=== PATIENT | female | born 1960 | race Two or more races ===

== ENCOUNTER 2024-05-21 09:40 | Outpatient (RCR) | payer OTHER, SELFPAY ==
--- NOTE | 2024-05-21 11:50 | CTCCONSULT_ITS ---
Gerardo Duenas Pending Sale To [facility] [address] [place], [place] [address] Consultation Note Date: 05/21/2024 MR#: [id number] Name: SAVANA MENDIOLA : 1960 Dx: C54.1 Malignant neoplasm of endometrium Referring physician. Isacc Reynolds DO Reason for consultation. Patient with stage Ib [id number]+ status post ROBERT/BSO referred for postop adju vant therapy. History of Present Illness: Patient is a 63-year-old lady experienced intermittent postmenop ausal bleeding and cramping and CT scan 03/18/2024 revealed left adnexal mass with no abdominal pelvic lymphadenopathy or evidence of met disease. Uterus was grossly unremarkable. Patient underwent ROBERT /BSO and peritoneal washings and bilateral pelvic sentinel lymph node biopsies performed by Dr. Vandana Reynolds DO [facility] in [place], 04/14/2024. Final pathology t umor size 4.5 cm greatest dimension FIGO grade 1 with 75% myometrial invasion. Peritoneal ascitic fl uid negative for malignant cells lymphatic and/or vascular invasion was equivocal; margins negative for invasive carcinoma in 1 isolated tumor cell 0.2 mm. Left tube and ovary revealed ovarian fibroma and benign cysts. Case was discussed at tumor board and radiation therapy was recommended. Preop C A125 reportedly was 107 but no distant mets noted. Past Medical History: High blood pressure asthma Meds. 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 Denies smoking drinking Family history. Father had lung cancer Sister with cervical uterine cancer mother had breast cancer. Review of Systems: Has experienced anxiety memory loss muscle pain increased thirst sleep problem Physical Exam: General: Adequate nourished appearing lady no acute distress HEENT: Atraumatic normocephalic extraocular is intact no oral lesion no cervical or supraclavicular a denopathy CV: Chest clear to auscultation heart regular rate and rhythm ABD: Soft no organomegaly or tenderness EXT: No signs of clubbing or edema Assessment:1. Stage Ib grade 1 [id number]+ uterine CA status post ROBERT/BSO 04/14/2024. 2. Deep 75% myometrial invasion equivocal lymphovascular invasion. 3. The above along with her being over 60 years old puts her at some risk of recurrence. Tumor boar d discussed in [place] reportedly suggested pelvis radiation which I believe is necessary. Approximat alverto 4500 to 5000 cGy using VMAT/IMRT should be reasonably tolerated with lowering the chance for recu rrence. Side effects discussed. Thank you very much for allowing me to evaluate and manage this pa tient. Cc: Isacc Reynolds DO [facility] [address] [place] [address] Dr. Elizabeth, [address], [place] [address] Electronically signed by: Blade Cosby MD, LILIAMR 05/21/2024 11:48 AM
--- NOTE | 2024-05-21 12:28 | CTCTXPLN_ITS ---
[facility] [place] [address] [place], [place] [address] Physician Clinical Treatment Planning Note Date of Service: 05/21/2024 Name: SAVANA NICHOLSMarisol MontezB.: 1960 The patient has agreed to proceed with Radiation therapy. Tests and supporting medical records were interpreted to assist in defining the tumor location and extent of disease. Further imaging will be necessary to contour and delineate the volume to which the XRT will be provided. A. Treatment Intent: Curative B. Modality: 10 MV C. Requested Technique: VMAT D. Treatment Site: Pelvis E. Critical structures to be contoured on plan: F. In order to accomplish this plan, I am ordering/Prescribing the followin. Simulations (s) will be performed to accomplish a reproducible treatment position, to determine op timal treatment portals/beam arrangements, to design beam modifying devices and verify treatment port als on patient prior to the commencement of Radiation Therapy. Vac-Yair 2. Devices; for immobilization and beam shaping: Pelvis 3. CT Guidance for placement of XRT lopez Scan area: 4. Portal images Frequency: 5. Invivo transit dose measurement once per week on all VMAT patients. 6. Special Physics Consult Requested for: 7. Other requests: G. Dose Objectives: Curative Electronically signed by: Blade Cosby M.D. 05/21/2024 12:25 PM
--- NOTE | 2024-05-21 12:29 | CTCTXPLNST_ITS ---
Radiation Oncology Treatment Planning Sheet Name: SAVANA MENDIOLA MR#: [id number] : 1960 Dx: C54.1 Malignant neoplasm of endometrium Date of Service: 05/21/2024 Account #: ?? Pt Treatment Intent: curative palliative other: Stage: Procedure CPT # Ordered Spec. Procedure 70466 Hunter Complex (set-up) 79414 pelvis 1 Hunter Simple 14854 IMRT Plan 30148 1 MLC Devices VMAT 19120 3 Hunter 3 D 43626 TRTMT dev Complex 69799 vaklok 1 TRTMT dev simple 99870 Basic Micheal 89170 9 Special Dosimetry 80732 Spec Physics 07993 Port Films 34311 SRS Cranial/1FX 28933 SBR 5 FX or Less /ex: 5 = 5 fx 97411 IMRT Simple 03137 5000 25 IMRT Complex 78756 IGRT 00367 22 Rad del com 6-10 37690 Rad del com 11 54039 Cont Med Physics 32217 5 Treatment Planning 18321 1 Rad del com 20 mev 53552 Rad del inter 6 20018 Rad del inter 05-20 16769 Rad del simple 6-10 17151 Rad del simple 05-20 51505 Special Port Plan 85985 TRTMT dev inter 16511 Isodose Complex 80595 Isodose simple 95011 Resp Motion Mgmt Simulation 27635 Placement of Fiducial Markers 91765 Electronically Signed By: Blade Cosby MD, DABR 05/21/2024 12:26 PM
== END 2024-05-31 23:59 | disposition home or self-care (01) ==
LOC: SCTC 09:40
PROVIDERS: PCP Physician Assistant; Referring Provider Radiology Therapeutic Radiology; Visit Provider Radiology Therapeutic Radiology
DX: C54.1 Malignant neoplasm of endometrium (principal); Z90.710 Acquired absence of both cervix and uterus; Z90.722 Acquired absence of ovaries, bilateral
CPT/HCPCS: 99213; G0463

== ENCOUNTER 2024-07-01 09:24 | Outpatient (RCR) | payer OTHER, MEDICAID, SELFPAY ==
--- NOTE | 2024-06-04 16:26 | CTCSNOTE_ITS ---
[facility] [address] [place], [place] [address] CT Simulation Note Date: 06/04/2024 MR# [id number] Name: SAVANA MENDIOLA : 1960 (A) DIAGNOSIS: C54.1 Malignant neoplasm of endometrium (B) Patient was placed in supine position and used vaklok for immobilization purposes. (C) CT slices included pelvis (D) VMAT Will be needed for maximum sparing of adjacent normal critical structures. (E) Patient tolerated the simulation well and left the room in good condition. Electronically signed by: Blade Cosby MD, LILIAMR 06/04/2024 4:24 PM
== END 2024-07-01 23:59 | disposition home or self-care (01) ==
LOC: SCTC 09:24
PROVIDERS: PCP Physician Assistant; Referring Provider Physician Assistant; Visit Provider Radiology Therapeutic Radiology
DX: Z51.0 Encounter for antineoplastic radiation therapy (principal); C54.1 Malignant neoplasm of endometrium; Z90.710 Acquired absence of both cervix and uterus; Z90.722 Acquired absence of ovaries, bilateral
CPT/HCPCS: 77014; 77290; 77300; 77301; 77334; 77336; 77338; 77385; 99424; 99425

== ENCOUNTER 2024-07-22 09:27 | Outpatient (RCR) | payer MEDICAID, SELFPAY | END 2024-08-01 23:59 | disposition home or self-care (01) | LOC: SCTC 09:27 | PROVIDERS: PCP Physician Assistant; Referring Provider Physician Assistant; Visit Provider Radiology Therapeutic Radiology | DX: Z51.0 Encounter for antineoplastic radiation therapy (principal); C54.1 Malignant neoplasm of endometrium | CPT/HCPCS: 77336; 77385; 99211; G0463 ==

== ENCOUNTER 2024-09-16 10:53 | Outpatient (RCR) | payer MEDICAID, SELFPAY ==
--- NOTE | 2024-09-16 12:19 | CTCFLWUP_ITS ---
[facility] [address] [place], [place] [address] FOLLOW-UP NOTE Date: 09/16/2024 MR#: [id number] Name: SAVANA MENDIOLA : 1960 Dx: C54.1 Malignant neoplasm of endometrium Identification. Patient with endometrial CA stage Ib ROBERT/BSO performed 04/14/2024. There was deep myometrial invasion and equivocal lymphovascular invasion. This put her at some risk of recurrence along with her age of over 61 and pelvis radiation 5000 cGy was completed 07/22/2024. Patient is having some side effects including fatigue trouble sleeping and some discomfort in the lower abdominal region. Patient is unable to return to [place] due to insurance issues for the time being. I recommended that patient be off work for the next 4 months, until January 20 2025 to recover from her surgery and postop radiation treatments. I will see her at the time about possibly returning to work along with various test including CT scan and blood tests which we ordered at the time. Electronically signed by: Blade Cosby M.D. 09/16/2024 12:15 PM
== END 2024-09-29 23:59 | disposition home or self-care (01) ==
LOC: SCTC 10:53
PROVIDERS: PCP Physician Assistant; Referring Provider Physician Assistant; Visit Provider Radiology Therapeutic Radiology
DX: C54.1 Malignant neoplasm of endometrium (principal)
CPT/HCPCS: 99212; G0463

== ENCOUNTER 2025-01-28 09:04 | Outpatient (RCR) | payer MEDICAID, SELFPAY ==
--- NOTE | 2025-01-28 11:46 | CTCFLWUP_ITS ---
[facility] [address] [place], [place] [address] FOLLOW-UP NOTE Date: 01/28/2025 MR#: [id number] Name: SAVANA MENDIOLA : 1960 Dx: C54.1 Malignant neoplasm of endometrium Identification. Patient underwent ROBERT/BSO 04/14/2024 stage Ib grade 1 [id number]+ uterine CA with deep 75% myometrial invasion with equivocal lymphovascular invasion. Postop XRT as recommended completed 07/22/2024 5000 cGy. Patient is doing well has no pelvic complaints. Patient goes to [place] regularly to see Dr. Reynolds and prefers to get pelvics done there. I will order CT scan of abdomen pelvis chest and get CA125. If all is well we will see her again in 6 months time. Electronically signed by: Blade Cosby M.D. 01/28/2025 11:44 AM
== END 2025-01-29 23:59 | disposition home or self-care (01) ==
LOC: SCTC 09:04
PROVIDERS: PCP Physician Assistant; Referring Provider Physician Assistant; Visit Provider Radiology Therapeutic Radiology
DX: C54.1 Malignant neoplasm of endometrium (principal); Z90.710 Acquired absence of both cervix and uterus; Z90.722 Acquired absence of ovaries, bilateral; Z92.3 Personal history of irradiation
CPT/HCPCS: 99213; G0463

== ENCOUNTER 2025-03-10 13:16 | Outpatient (CLI) | payer MEDICAID, SELFPAY ==
[2025-03-10 08:56] LABS: Basophils # (Auto) 0.0 Thou/mm3 (0.0-0.2); Basophils % (Auto) 0 % (0-2.5); Eosinophils # (Auto) 0.5 Thou/mm3 (0.0-0.5); Eosinophils % (Auto) 6 % (0-10); Hematocrit 38.8 % (36.0-46.0); Hemoglobin 12.4 g/dL (12.0-16.0); Immature Granulocytes Auto 0.04 Thou/mm3 (0.00-0.00); Lymphocytes # (Auto) 1.7 Thou/mm3 (1.0-4.8); Lymphocytes % (Auto) 20 % (10-50); Mean Corpuscular HGB Conc 32.0 g/dl (31.0-37.0); Mean Corpuscular Hemoglobin 28.0 pg (25.0-35.0); Mean Corpuscular Volume 88 fL (80-100); Monocytes # (Auto) 0.6 Thou/mm3 (0.0-0.8); Monocytes % (Auto) 7 % (0-12); Neutrophils # (Auto) 5.6 Thou/mm3 (1.8-7.7); Neutrophils % (Auto) 66 % (37-80); Nucleated Red Blood Cell # 0.00 Thou/mm3 (0.00-0.00); Nucleated Red Blood Cell % 0 /100 WBC (0); Platelet Count 308 Thou/mm3 (140-440); RDW Standard Deviation 45.5 fL (36.4-46.3); Red Blood Count 4.43 Miln/mm3 (4.00-5.20); White Blood Count 8.4 Thou/mm3 (3.6-11.0)
[2025-03-10 09:01] LABS: Alanine Aminotransferase 19 U/L (10-49); Albumin, Serum 4.0 gm/dL (3.4-4.8); Albumin/Globulin Ratio 1.5 (1.2-2.2); Alkaline Phosphatase 81 U/L (46-116); Anion Gap 11 (7-16); Aspartate Amino Transferase 23 U/L (0-34); BUN/Creatinine Ratio 22 Ratio (12-20); Bilirubin,Total 0.2 mg/dL (0.3-1.2); Blood Urea Nitrogen 24 mg/dL (9-23); Calcium 9.1 mg/dL (8.3-10.6); Calcium (Corrected) 9.1 mg/dL (8.5-10.1); Carbon Dioxide 29.9 mMol/L (20.0-31.0); Chloride 105 mMol/L (98-107); Creatinine (Component) 1.1 mg/dL (0.6-1.3); Globulin 2.7 gm/dL (2.3-3.5); Glucose 91 mg/dL (74-106); Osmolality,Calculated 294 (275-295); Potassium 4.0 mMol/L (3.4-5.1); Sodium 146 mMol/L (136-145); Total Protein 6.7 gm/dL (5.7-8.2); eGFR 56 See Note
[2025-03-10 09:13] LABS: CA 125 4.0 U/mL (<30.2)
--- NOTE | 2025-03-10 14:46 | XR_ITS ---
Examination: CT chest with intravenous contrast CT abdomen with intravenous contrast CT pelvis with intravenous contrast 2-D coronal and sagittal reconstructions Time of exam: March 10, 2025, 1523 hours, comparison CT angiogram February 25, 2024 INDICATIONS: Diagnosis malignant neoplasm of the endometrium diagnosed 2022, hysterectomy 2023, restaging CTDI: vol (mGy) : 14 DLP: (mGycm): 1034 Technique: Multiple axial images of the chest, abdomen and pelvis with intravenous contrast, 3.0 mm slice thickness. Images obtained post intravenous injection Isovue 370 60 cc. 2-D sagittal and coronal reconstructions. Low dose protocols were performed. One or more of the following dose reduction techniques were used; automated exposure control, adjustment of the mA and/or KV according to patient size, use of iterative reconstruction technique. Findings: No thoracic aortic aneurysm dilatation No pulmonary artery emboli or filling defects on this non-CTA study No paratracheal tracheobronchial or pulmonary adenopathy 5 mm pulmonary nodule medial right lower lobe image 134 No pneumonia pulmonary edema or pleural disease Diffuse fatty infiltration throughout the liver no focal liver lesions Hepatomegaly 19 cm No gallstones Splenic or pancreatic mass Normal adrenal glands. 1 mm nonobstructing renal calculus Significant bilateral renal scar formation, no solid mass lesion 1 mm nonobstructing right renal calculus Aorta is normal in size No abnormal pelvic lymphadenopathy Normal appendix Colonic diverticulosis Absent uterus Bladder intact Significant osteopenia Grade 1 anterolisthesis L4 on L5 IMPRESSION: 5 mm pulmonary nodule medial right lower lobe, with this study as baseline recommend 6 month follow-up CT chest without contrast No focal liver lesions, moderate hepatomegaly. Significant bilateral renal scar formation No abdominal or pelvic lymphadenopathy
[2025-03-10 15:05] VITALS: BP 139/98; PULSE 79; RESP 19; TEMP 36.4; O2SAT 99
[2025-03-10] MEDS: HYDROCORTISONE SOD SUCC INJ 100 MG 2 ML VIAL IV (15:14)
[2025-03-10 15:27] VITALS: BP 147/93; PULSE 80; RESP 18; O2SAT 99
--- NOTE | 2025-03-10 15:28 | PC.NURSE ---
Post CT with contrast with premedication for allergy to iodine. Patient states she feels fine and does not report any itchiness, abnormal throat sensation or swelling. No hives noted on patient.
[2025-03-10 15:45] VITALS: BP 132/75; PULSE 76; RESP 24; O2SAT 97
--- NOTE | 2025-03-10 15:57 | PC.NURSE ---
see MAR for medications given, patient appears to be fine without any signs and symptoms of an allergic reaction from the contrast, vitals signs are stable and patient does not complain of any airway restrictions or body hives, patient is stable and ready to go home.
[2025-03-10 16:00] VITALS: BP 126/89; PULSE 73; RESP 17; TEMP 36.4; O2SAT 99
== END 2025-03-10 16:00 | disposition home or self-care (01) ==
LOC: CCTX 13:23 → SCAT 14:22
PROVIDERS: PCP Physician Assistant; Referring Provider Radiology Therapeutic Radiology; Visit Provider Radiology Therapeutic Radiology
DX: R91.1 Solitary pulmonary nodule (principal); N28.89 Other specified disorders of kidney and ureter; C54.1 Malignant neoplasm of endometrium
CPT/HCPCS: 36415; 71260; 74177; 80053; 85025; 86304; A4649; J1720; Q9967

== ENCOUNTER 2025-03-30 14:45 | Outpatient (AMB) | payer MEDICAID, SELFPAY ==
--- NOTE | 2025-03-30 14:51 | GSCOFFNT_ITS ---
Vital Signs - [facility] 03/30/25 15:04 Height 1.7 m Height Method Measured Weight 114.986 kg Weight Measurement Method Standing Scale BMI 39.6 BP 135/85 H Blood Pressure Source Automatic Cuff Blood Pressure Location Left Upper Arm Position Sitting Respiration 18 Pulse 83 Pulse Source Monitor Temp 97.5 F Temp Source Temporal Artery Scan Pulse Oximetry (%) 96 Oxygen Delivery Method Room Air Med/Allergies Allergies & Medications Allergies iodine Allergy (Severe, Verified 03/30/25 15:05) Hives Medication Reconciliation Unobtainable 03/30/25 [History Confirmed 03/30/25] MA Intake Visit Data Collection New Patient or Established: Established Patient (seen at [facility] within 3 years) Seen by Clinical Staff ONLY (RN/MA): No Reason for Visit:: REFERRAL CONSTIPATION Pain Present Currently: No Pain Scale Used: Qureshi-Greene/Numerical Recorder Of Deeds Required: Yes PCP or OBGYN visit in last 3 months: Yes Hx Now: No Do You Feel Safe at Home: Yes Authorities Contacted: N/A Smoking Status Smoking Status: Never smoker Immunization / Flu Flu Vaccine in the Last 12 Months: Yes Flu Vaccine Exclusion Criteria: Already Received Past Medical History Surgical History SURGICAL: Positive Hysterectomy (TOTAL 04/2025) Social History SMOKING STATUS: Smoking status: Never smoker HPI HPI Narrative HISTORY OF PRESENT ILLNESS I, Kim Lozoya, have obtained verbal consent from the patient, to be recorded during this encounter which may include, but not limited to, medical history, examination, treatment plans, and relevant health information.? Patient was informed that recording will be read and reviewed by myself before inclusion in the medical chart. The patient is a 64F referred for constipation. She has been experiencing constipation for approximately 3 years, which worsened following a total hysterectomy in 04/2024. Her bowel movements are irregular, sometimes occurring daily, while at other times she may not have a bowel movement for two days. She often needs to take something to help with her bowel movements, primarily psyllium and occasionally another medication, the name of which she cannot recall. She reports no urge to defecate and describes her stools as thin strips, a pattern that has persisted for the past three years. She has not experienced any instances of loose stools or blood in her stool. She also reports feeling bloated. She experiences pain under her left rib when constipated, which subsides after a bowel movement. She reports no changes in weight or appetite. She maintains good hydration, consuming 6 to 8 bottles of water daily. A colonoscopy performed 6 to 8 years ago showed no abnormalities. She underwent radiation therapy for 25 days, starting three months after her surgery. She has a history of high uric acid, prediabetes, and hypertension. She takes a diuretic and cholesterol medication. PMH: Gout, HTN, preDM PSHx: Total hysterectomy for uterine CA 04/2024 Meds: No antiplt or anticoagulation Allergies: iodine Family hx: No known CRC ROS Review of Systems Systems Reviewed: All systems reviewed, normal except as documented Objective/Exam General General Appearance: alert, cooperative and well groomed Resp Respiratory exam: Absent respiratory distress Assessment & Plan Diagnosis / Problem List (1) Constipation: Status: Acute Assessment & Plan: A colonoscopy is recommended to evaluate for any mechanical cause of her symptoms. The procedure will be scheduled for the next available date which should be in Apr. Instructions regarding dietary restrictions prior to the procedure have been provided. Advised to avoid solid food the day before the procedure and to consume clear liquids only. A prescription for medication to cleanse the colon will be provided. The risks associated with the procedure, including the possibility of bleeding if polyps are removed and the rare risk of colon perforation requiring emergency surgery, have been discussed. I also explained that I may need to abort prematurely for safety. All questions were answered and pt expressed understanding Office Procedures GNS Level of Care Nursing/Assessment Patient Status: Initial/New Patient Nursing Assessment/Reassesment: Medication Reconciliation, Update PMH in EMR and Vital Signs Coordination of Care: Complex Care and Chronic Disease 1-5, Consent,records obtained, informed consent, Education Simp Pt/Fam, Results/Orders obtained and Staff clarify orders Special Needs: Language special needs New Patient Charge New Patient Point Assignment: 1089 New Patient Point Charge: SCOURING PADS SUPERVISOR Level 3 ([id number]) Patient Portal Questionaires Social History Tobacco History Smoking Status: Never smoker Domestic Abuse History Do You Feel Safe at Home: Yes Review of Systems Report any current symptoms Only answer those that you have currently: Past Medical History Past Medical History Have you ever been diagnosed with any of the following: Surgical History Hysterectomy: Yes (TOTAL 04/2025)
[2025-03-30 15:04] VITALS: BP 135/85; PULSE 83; RESP 18; TEMP 36.4; O2SAT 96; BMI 39.6
== END 2025-03-30 16:03 | disposition home or self-care (01) ==
LOC: HODSRG 14:45
PROVIDERS: PCP Physician Assistant; Referring Provider Physician Assistant; Supervising Provider Surgery; Visit Provider Surgery
DX: K59.00 Constipation, unspecified (principal); I10 Essential (primary) hypertension; R73.03 Prediabetes
CPT/HCPCS: 99203; G0463

== ENCOUNTER → 2025-06-15 | Outpatient (CLI) | payer MEDICAID, SELFPAY ==
--- NOTE | 2025-06-15 13:30 | XR_ITS ---
Examination: Retroperitoneal ultrasound, complete Technique: Multiple high resolution grayscale images of the retroperitoneum obtained, including kidneys and bladder. Exam date and time: June 15, 2025, 1352 hours INDICATIONS: Right flank pain 6 months, history kidney stones FINDINGS: Right kidney 9.0 cm renal cortex 1.7 cm Left kidney 9.5 cm renal cortex 2.2 cm 5 mm right renal calculus 4 mm left renal calculus Moderate renal scar formation No hydronephrosis Urinary bladder prevoid volume 228 cc no bladder calculi IMPRESSION: Small kidneys Bilateral nonobstructing renal calculi Moderate bilateral renal scar formation
== END | disposition home or self-care (01) ==
PROVIDERS: PCP Physician Assistant; Referring Provider Physician Assistant; Visit Provider Internal Medicine
DX: N28.89 Other specified disorders of kidney and ureter (principal); N20.0 Calculus of kidney
CPT/HCPCS: 76770